=== PATIENT | male | born 1995 | race Two or more races ===

== ENCOUNTER 2021-01-04 12:55 | Emergency (ER) | payer SELFPAY ==
[2021-01-04 13:02] VITALS: BMI 17.1
[2021-01-04] MEDS ORDERED: ACETAMINOPHEN 1000 MG/100 ML VIAL (NON FORMULARY) IVPB ONE (13:21)
[2021-01-04] MEDS ORDERED: METOCLOPRAMIDE HCL INJECTION 10 MG/2 ML VIAL IVPUSH ONE (13:21)
[2021-01-04] MEDS ORDERED: ACETAMINOPHEN INJECTION 100 ML IVPB ONE (13:27)
[2021-01-04] MEDS ORDERED: METOCLOPRAMIDE HCL INJECTION 10 MG/2 ML VIAL ONE (13:27)
[2021-01-04] MEDS ORDERED: SODIUM CHLORIDE 1,000 ML IV STA (13:56)
[2021-01-04 15:07] LABS: HEMATOCRIT 41.6 % (35.4-49); HEMOGLOBIN 13.7 GM/dL (11.7-16.9); MCH 27.7 pg (25.7-33.7); MCHC 32.9 g/dl (32.0-35.9); MEAN CELL VOLUME 84.2 fl (80-96); MEAN PLT VOLUME 10.6 fl (7.5-11.1); PLATELET COUNT 180 10^3/uL (134-434); RBC 4.94 M/mm3 (4.00-5.60); RDW 15.2 % (11.9-15.9); WHITE BLOOD COUNT 14.2 K/mm3 (4.0-10.0)
[2021-01-04 15:14] LABS: INR 1.19 (0.83-1.09); PROTHROMBIN TIME (PATIENT) 14.3 SEC (9.7-13.0)
[2021-01-04 15:16] LABS: ACTIVATED PTT 29.1 SECONDS (25.2-36.5)
[2021-01-04 15:26] LABS: ALBUMIN 4.1 g/dl (3.4-5.0); BLOOD UREA NITROGEN 11.4 mg/dL (7-18); CALCIUM 8.8 mg/dL (8.5-10.1)
[2021-01-04 15:30] LABS: CREATININE 0.8 mg/dL (0.55-1.3)
[2021-01-04 15:31] LABS: TOT PROT 7.9 g/dl (6.4-8.2)
[2021-01-04 15:35] LABS: BILIRUBIN,TOTAL 1.1 mg/dL (0.2-1)
[2021-01-04] MEDS ORDERED: MANNITOL 25% 12.5 GM/50 ML VIAL IVPB ONE (16:02)
[2021-01-04] MEDS ORDERED: levETIRAcetam 500 MG/5 ML INJECTION VIAL IVPB ONE ×2 (16:02→16:11)
[2021-01-04 16:08] VITALS: BP 104/45
[2021-01-04 16:41] LABS: ANISOCYTOSIS 1+; MACROCYTOSIS 0
[2021-01-04 16:43] LABS: PLATELET ESTIMATE NORMAL
[2021-01-04 17:08] VITALS: PULSE 72; TEMP 98.6
== END 2021-01-04 17:08 | disposition short-term general hospital (02) ==
LOC: JER 12:55
PROC: 3E0333Z Introduction of Anti-inflammatory into Peripheral Vein, Percutaneous Approach (ICD-10-PCS; principal; 2021-01-04)
PROC: 3E033GC Introduction of Other Therapeutic Substance into Peripheral Vein, Percutaneous Approach (ICD-10-PCS; 2021-01-04)
PROC: 3E033GC Introduction of Other Therapeutic Substance into Peripheral Vein, Percutaneous Approach (ICD-10-PCS; 2021-01-04)
PROC: 3E0337Z Introduction of Electrolytic and Water Balance Substance into Peripheral Vein, Percutaneous Approach (ICD-10-PCS; 2021-01-04)
DX: S02.119A Unspecified fracture of occiput, initial encounter for closed fracture (principal); I62.9 Nontraumatic intracranial hemorrhage, unspecified; W18.2XXA Fall in (into) shower or empty bathtub, initial encounter
CPT/HCPCS: 36415; 70450-TC; 80053; 85025; 85610; 85730; 86850; 86900; 86901; 93005; 93010; 99291; C9803; J0131; U0003; U0005